=== PATIENT | male | born 1965 | race Two or more races ===

== ENCOUNTER 2024-03-05 15:54 | Emergency (ER) | payer MEDICAID, OTHER ==
[~2024-03-05] VITALS: Ht 177.8 cm; Wt 80.9 kg
[2024-03-05 15:54] VITALS: BP 140/97; RESP 18; O2SAT 93
[2024-03-05] MEDS ORDERED: ASPirin 81 mg TAB PO ONE (16:00)
[2024-03-05 16:01] VITALS: PULSE 108
== END 2024-03-05 16:05 | disposition left against medical advice (07) ==
LOC: EDBD 15:54 → ER 15:54
DX: T82.119A Breakdown (mechanical) of unspecified cardiac electronic device, initial encounter (principal); Z95.0 Presence of cardiac pacemaker; Z98.61 Coronary angioplasty status
CPT/HCPCS: 93005